=== PATIENT | female | born 1955 | race Caucasian/White ===

== ENCOUNTER 2023-01-13 10:29 | Observation (INO) | payer MEDICARE, OTHER, SELFPAY ==
[2023-01-08 08:21] VITALS: BMI 28.8
[2023-01-13] VITALS (16 sets, daily range): BP systolic 138–219; BP diastolic 28–134; PULSE 88–103; RESP 16–20; TEMP 35.6–36.9; O2SAT 91–98; BMI 28.8
[2023-01-13] MEDS: ACETAMINOPHEN 325 MG TABLET 975 MG PO (07:15)
[2023-01-13] MEDS: PREGABALIN 75 MG CAPSULE PO (07:15)
[2023-01-13] MEDS: CELECOXIB 200 MG CAPSULE PO (07:16)
[2023-01-13] MEDS: LACTATED RINGERS 1,000 ML 42 ML IV ×2 (07:16→08:51)
[2023-01-13] MEDS: VANCOMYCIN 1,000 MG/200 ML PIGGYBACK 200 MG IV (07:16)
[2023-01-13] MEDS: ALBUTEROL/IPRATROPIUM 3 ML AMPUL INH (07:45)
--- NOTE | 2023-01-13 07:48 | P.OP_ITS ---
Operative Date/Time/Diagnoses Date of procedure: 01/13/23 Time of procedure: 08:00 Pre-op diagnosis: Right knee OA Post-op diagnosis: same Procedure & Clinicians Procedure: Right total knee arthroplasty Same procedure as scheduled: Yes Indications: The patient has had progressively worsening right knee pain with radiographic changes consistent with arthritis. Non-operative management has failed and the patient has requested total knee replacement. The risks, benefits and alternatives to surgery were discussed with the patient prior to proceeding. Risks discussed included, but were not limited to, failure to relieve pain, stiffness, infection, nerve damage, deep venous thrombosis, pulmonary embolism, stroke, coma, heart attack, permanent paralysis and , as well as the potential need for eventual revision of the prosthetic. Surgeon: Becki Garcia Land Examiner: Mitch Timmons Anesthesia Type: Spinal and Sedation Operative Notes Findings: Severe right knee lateral compartment arthritis, adequate stability, good tracking of the patella Closure Type: primary Specimen(s): none sent Prosthetic devices, grafts, tissues, transplants, or devices: [employer] BCS 2 a size 5 femur, size 4 tibia, +10 poly, 35 x 7- 1/2 mm patella Estimated Blood Loss (mL): 250 Blood products transfused: none Tourniquet time (min): 70 Procedure in detail: The patient was seen in the pre-operative area, where the patient identified the right knee as the operative site and this was marked with my initials. The patient received pre-operative antibiotics, and was taken to the operating room and placed on the operative table in the supine position. After satisfactory anesthesia, a house furnishings supervisor out was performed. The right leg was encircled with a tourniquet about the proximal thigh, and the leg was prepared from the toes to the tourniquet with ChloroPrep in the usual fashion and draped through sterile drapes. The leg was elevated and exsanguinated with Eschmark bandage and the tourniquet inflated to [250] mmHg pressure. A PA was used throughout the procedure was essential for retraction intraoperative positioning in order to allow safe implantation of the components. The knee was approached through an approximately 18 cm incision centered over the patella and carried into the knee through a medial parapatellar arthrotomy. A portion of the medial and lateral meniscus was resected. Soft tissue was carefully mobilized around the patella the patella was measured with a caliper. Bone was resected from the patella and the patellar height was reconstituted with up an appropriate sized patellar component. A cover was then placed on the patella. A small amount of additional medial and lateral meniscus was resected. The distal femur was cut at 5?. A [+2] cut was used. It looked like an appropriate distal femoral cut and the cut was made without difficulty. An extramedullary guide was used for the tibial cut. 10 mm was resected off the least affected side.The tibia was prepared. The rotation was assessed. The patient was placed in extension residual medial and lateral meniscus as well as any residual bone was carefully resected. [No] additional tibia was resected. Hemostasis was achieved especially posteriorly. Additional local was injected into the posterior capsule. The extension gap was assessed and additional releases for gap balancing were performed as necessary. It was checked with the gap ballet company artistic director. The femoral component was trial was placed and the notch was finished. The rotation was assessed and the appropriate size femoral guide was placed on the distal femur and finishing cuts were made. There was no significant evidence of notching. The anterior, posterior and chamfer cuts were then made. The posterior osteophytes and soft tissues were then removed. The posterior capsule was injected with part of a mixture of 60 ml 0.25% Marcaine mixed with 20 ml Exparel for post operative pain control. The remainder of this mixture was injected into the capsule and subcutaneous tissues during cement curing. The tibial and femoral components were then placed and the knee placed through a range of motion. Range of motion was [0-130], with good stability throughout the range. The trials were then removed, and the tibia was finished. The bone was prepared with pulsatile lavage, and dried with a sponge. Cement was applied and the final prosthetics placed. Excess cement was removed during and after cement curing. A brief Betadine soak was performed. After confirming there was no extruded cement posteriorly, the final tibial insert was placed. The knee was copiously irrigated and the tourniquet deflated. Hemostasis was obtained with the Bovie cautery. A drain was placed and brought out superolaterally. The capsule was closed with interrupted nonabsorbable suture. The subcutaneous layer was closed with barbed sutures, and the skin with a running 3-0 V-Lock suture and Surgical glue. An Aquacel Ag dressing was applied and the patient was taken to recovery having tolerated the procedure well. Complications: none Post-operative Condition: stable Disposition: Acute Care Plan for aftercare: The patient will be maintained on a standard total knee replacement protocol with weight bearing as tolerated. The patient will receive aspirin and sequential compression devices for DVT prophylaxis. The patient will be admitted to the hospital as she has multiple medical problems including some component of cuff chronic pain problems, neuropathy, restless legs and difficulty mobilizing. She had fairly recent spine surgery. Discharged home when safe for the home environment.
--- NOTE | 2023-01-13 07:48 | PM.PREOP ---
Pre-operative Note Interval Note History & Physical reviewed/Exam performed by Physician: Yes Changes to H&P: No
[2023-01-13] MEDS: CEFAZOLIN 2 GM/100 ML PREMIX 100 ML IV ×2 (08:29→16:29)
--- NOTE | 2023-01-13 08:35 | SUR.OPER ---
Supine on padded OR bed. Pillow under head, arms secured on padded armboards <90 degree abduction. Safety belt across torso. Non-operative leg secured with tape over blanket over lower leg. Operative leg secured in DeMayo positioner. Foam padded brace at thigh of operative leg.
[2023-01-13] MEDS: BUPIVACAINE LIPOSOME 266 MG/20 ML VIAL INJ (08:41)
[2023-01-13] MEDS: BUPIVACAINE 0.5% W/ EPI (PF) 30 ML VIAL INJ (08:45)
--- NOTE | 2023-01-13 11:00 | DI.RAD.S_ITS ---
PROCEDURE: XR KNEE RT 1TO2V INDICATIONS: TKA TECHNIQUE: 2 view(s) of the knee acquired. COMPARISON: None. FINDINGS: Bones: Patient is status post knee joint arthroplasty. Hardware components are in expected positions. Visualized bony structures are intact. Soft tissues: Overlying postoperative changes are noted. Lobulated, corticated dystrophic calcification projects dorsal to the tibial fibular articulation, incidental. IMPRESSION: Expected appearance post right knee arthroplasty. Dictated by: Elsa Lomeli M.D. on 01/13/2023 at 9:43 Approved by: Elsa Lomeli M.D. on 01/13/2023 at 9:43
[2023-01-13] MEDS: HYDROMORPHONE 2 MG TABLET PO ×3 (12:34→20:17)
[2023-01-13] MEDS: LACTATED RINGERS 1,000 ML 100 ML IV ×2 (12:36→22:26)
[2023-01-13] MEDS: HYDROCODONE/ACET 10/325 TABLET 1 TAB PO ×3 (13:03→23:10)
[2023-01-13] MEDS: HYDROMORPHONE 4 MG TABLET PO ×2 (13:04→16:26)
[2023-01-13] MEDS: ONDANSETRON 4 MG/2 ML INJ IV (13:35)
--- NOTE | 2023-01-13 13:42 | CM.DANOTE ---
Addendum entered by GIOVANNI Powell 01/13/23 14:47: ADD: SW met bedside with pt while Ortho Dr. Garcia checked on pt's progress with her knee and SW explained pt currently Outpt with a Bed status and MIGHT switch to OBS pending Medicare criteria tomorrow but currently pt does not qualify for Medicare coverage at SNF. Pt confirms she lives in an apt/condo that [facility] that does have 16 steps to enter but they are wide/large stairs that accommodate a walker and has rail. Pt lives with a roommate who is also disabled physically and therefore can assist with some chores/food/etc but not able to physically assist pt at d/c. Pt confirms she has a hx of [facility] after a hip fx a few years ago and does not feel that they provided good care and would not want to go there again. Pt also states she has used [facility] in the past and felt they were very good and would be willing to use [facility] again if she is safe for d/c to home. Pt states her knee feels so much better than her prior knee surgeries and is hopeful she can do well with PT/OT for return to home with [facility]. SW updated PT and they will try to eval her today. Plan: SW to follow closely for PT/OT eval and recommendations to confirm pt safe for home with HH as currently SNF would be private pay. SW made initial referral to [facility] to review. Will need F2F and orders if pt safe for home. GIOVANNI Powell Original Note: Patient is a 67 yo female who was admitted on 01/13/23 for RTKA. Pt has MCR and PRE DIM for insurance and her PCP is Emil Wolfe. EMR was reviewed. Per Ortho , pt tolerated procedure well but has many stairs to enter her apt and requesting SNF at d/c. Per UR RN, pt currently SDC status and might change to OBS status tomorrow but not likely to meet criteria for Inpt Status and therefore a barrier to SNF placement. SW attempted to meet bedside with pt but on the BSC attempting to have a bowel movement and per RN pt has not been very ambulatory for about 6 months. PT/OT ordered and pending and SW confirmed they have not yet worked with pt today as she was just admitted from surg this morning. Plan: SW to follow closely for another attempt at bedside assessment to discuss SNF vs HH and barriers to SNF placement and PT/OT eval and recommendations. GIOVANNI Powell Discharge Planning/Care Management CM Discharge Assessment Start: 01/13/23 13:40 Freq: Status: Active Protocol: Document 01/13/23 13:40 BF (Rec: 01/13/23 13:42 BF [id number]) Discharge Planning Assessment Assigned Campground Attendant GIOVANNI Barajas Advance Directives? No Advance Directives on File No History Provided By Patient,Medical Record Has Patient been admitted in last 30 No days? Prior Living Arrangements House Household Members friend(s),other Type of transporation used prior to Relies on Others admit Independent with ADL's Yes Is patient alert and oriented? Yes Caregiver for Another No Community Services used prior to Physical Therapy admission: Barriers to Discharge Yes Comment SDC, might change to OBS and pt wants SNF Discharge Plan Home with Home Health Additional Comment Pending PT/OT eval and recommendations HH vs SNF Whiteboard Updated in Patient Room with Yes name and ext. # of Campground Attendant Review Status In Process Please Provide Date Initial DC 01/13/23 Assessment Was Performed Next Review Type Continued Stay Review Pre-Anesthesia Assessment Start: 01/08/23 08:21 Freq: Status: Active Protocol: Document 01/08/23 08:21 CAB (Rec: 01/08/23 09:42 CAB [id number]) Pre-Anesthesia Assessment Preferred Name Tanvi Patient Information Reviewed Via Phone Assessment Assessment Completed With Patient Diagnostic Results BMP/CMP,CBC,EKG,Urinalysis Comment Outside labs/EKG scanned Primary Care Provider Emil Wolfe Seen Specialist in Last 12 Months Yes Specialist Seen Orthopedist Primary Language Khmer Broke Beater Machine Operator Required No Height 173.99 cm Weight 87.09 kg Body Mass Index (BMI) 28.8 Hearing Ability Normal Visual Impairment Blind Visual Assist None Dentition Type Teeth, Natural Present,Teeth, Missing Barriers to Learning None Comment Right eye blindness. Pt denies any difficulties Hx Anesthesia Reactions Yes: I was awake during my nose surgery, I could hear them talking Hx Family Anesthesia Reaction No Hx Malignant Hyperthermia No Hx Blood Transfusions No Anesthesia Review Requested No Superintendent Quarry Yes: No available help, wants to go to [facility] alcohol intake current alcohol intake frequency 3 or more drinks per day Smoking Status Former smoker Tobacco type cigarettes how long ago did patient quit smoking Quit 2022 Substance Use Type marijuana Comment Advised not to smoke marijuana 24 hours prior Pain Present Pain Reported Musculoskeletal Symptoms Joint Pain History of Falling (Recent or History of No ) Patient is completely paralyzed or No completely immobile Mental Status Oriented to own ability Is patient on oxygen? No Does patient have TELLEZ/SOB No Hx Sleep Apnea No Currently Taking a Beta Gely No Can You Climb a Flight of Stairs Without Yes SOB Hx Chest Pain No Hx SOB No Hx Syncope or Dizziness No Anti-Coagulant Therapy No Has a Bee Farmer No Cardiac Testing No Hx Pacemaker/ICD No Pacemaker Rep Required? No Cardiac Clearance Received Not Applicable Diet Type At Home Regular Dysphagia No Gastrointestinal Symptoms None Bladder Pattern Frequency,Urgency Urinary Catheter Present No Hx Urinary Self Catheterization No Diabetes No HgbA1C 5.3 Date 07/23/22 Patient No Lactating No Presence of External or Internal Medical Yes: Right hip/ankle Devices Have you had any close contact with No someone diagnosed with COVID-19? Received a COVID vaccine? Yes Received all doses? No Marital Status / Lives With other Current Living Arrangements House Comment Lives in a large home with [employer] renters Number of Floors (Floors) Two Floors Support System None Does the Patient Have Assistance After No Surgery Comment Pt not advised length of stay per surgeon, wants to go to [facility] Feels Safe in Current Environment Yes Been Physically Hurt or Threatened By a No Person in Current Environment Do you have thoughts of harming yourself None or others? Are you currently considering suicide? No Do you have a plan to hurt yourself or No Plan others? Do You Have Any Spiritual Beliefs That No May Affect Your HC Choices? Do You Have Any Cultural Practices That No May Affect Your HC Choices? Comment [place]eterian Who Can We Speak to About Patient's Care Family, friends Identifying Code for Release of Patient Declines to issue Information Health Care Proxy/Next of Kin Maggie (sister) Health Care Proxy Emergency Contact Name Maggie (sister) Emergency Contact Advance Directives? No Power of Bulb Weeder No PAC Instructions Do not shave/clip surgical site,Durable medical equipment ,Medications to take/avoid, Nasal antibiotic,No ETOH/ petroleum product on skin DOS, NPO,Pre-surgical wash,Sensory aids,Sturdy shoes/comfortable clothes,Do not bring valuables and remove jewelry
[2023-01-13] MEDS: IBUPROFEN 400 MG TABLET PO ×3 (14:43→23:10)
[2023-01-13] MEDS: LORazepam 1 MG TABLET PO ×3 (14:45→21:54)
[2023-01-13] MEDS: GABAPENTIN 300 MG CAPSULE PO ×2 (14:48→20:15)
--- NOTE | 2023-01-13 16:08 | OT.IPNOTE ---
Pt not wanting to do OT eval at this time and PT in the room getting her prior level of care. To see pt tomorrow for OT eval.
--- NOTE | 2023-01-13 16:32 | PT-IP ANOTE ---
PT eval received and EMR reviewed. Checked on pt and pt c/o increase back and RLE pain 04/14. pt agreed to provide PLOF and home set up info. will f/u.
[2023-01-13] MEDS: DOCUSATE 100 MG CAPSULE 200 MG PO ×3 (17:20→23:10)
[2023-01-13] MEDS: DULOXETINE 30 MG CAPSULE 60 MG PO (20:14)
[2023-01-13] MEDS: ROPINIROLE 1 MG TABLET PO (20:15)
[2023-01-13] MEDS: DOCUSATE 100 MG CAPSULE PO (20:15)
[2023-01-13] MEDS: GABAPENTIN 100 MG CAPSULE PO (20:15)
[2023-01-13] MEDS: QUETIAPINE 25 MG TABLET PO (20:15)
[2023-01-13] MEDS: TRAZODONE 50 MG TABLET 100 MG PO (20:15)
[2023-01-13] MEDS: ASPIRIN EC 81 MG TABLET PO (20:15)
[2023-01-13] MEDS: CYCLOBENZAPRINE 10 MG TABLET PO (20:15)
--- NOTE | 2023-01-13 20:52 | PC.NURSE ---
Post-op/Pain: Pt reports high pain level ever since she came from PACU. Md was called x3 and even came in once to speak with her. MD did add increased oral dlauidid, ativan and then later alcohol protocal. CIWA has been 2-6-9. Pt does have some tachy, heart rate as high as 120's when up and moving. Pt rt foot is also dusky, cooler than lt foot, sl decreased cap refill. But does have a strong pulse and she is able to get up and move on it without problems. Foot look less purplish now than at the end of a shift.
--- NOTE | 2023-01-13 23:31 | PC.NURSE ---
Patient is alert and oriented. Behavior at start of shift: crying, screaming, demanding pain meds. Currently is calm and expressing apology for earlier rudeness. Still having pain at severity of 8-10 but is able to take phone calls and is speaking in calm, measured voice. Breath sounds CTA with RA sat of 95%. HRR but tachy at 100 bpm and BP elevated at 167/94 likely related to pain. Denies nausea. BT present and abdomen is soft. Currently has external catheter is place as not wanting to get up to BSC related to pain therefore gait not assessed. CMS is intact bilaterally and right foot is more reddened than purple as previous RN reported. Dressing to right knee covered with mike wrap is CDI. Wearing SCD only on left leg per her request. Anxiety has abated and denied feeling of anxiousness at time of assessment and CIWA score was 1; did have Ativan for anxiety at 2154 for general complaint of anxiety. Seizure pads in place at shift change. Fall risk assessment is high and bed alarm is activated.
[2023-01-14] MEDS: HYDROMORPHONE 4 MG TABLET PO ×2 (00:12→11:54)
[2023-01-14] MEDS: CEFAZOLIN 2 GM/100 ML PREMIX 100 ML IV (00:13)
[2023-01-14] MEDS: HYDROCODONE/ACET 10/325 TABLET 1 TAB PO ×8 (02:26→23:02)
[2023-01-14] MEDS: IBUPROFEN 400 MG TABLET PO ×6 (02:26→23:01)
[2023-01-14] MEDS: DOCUSATE 100 MG CAPSULE 200 MG PO ×8 (02:27→23:03)
[2023-01-14 03:10] VITALS: BP 158/92; PULSE 101; RESP 20; TEMP 36.6; O2SAT 94
[2023-01-14 05:28] LABS: Hematocrit 37.3 % (36-46); Hemoglobin 12.9 g/dL (12.0-16.0)
[2023-01-14 07:00] VITALS: BP 161/95; PULSE 91; RESP 18; TEMP 35.9; O2SAT 93
--- NOTE | 2023-01-14 07:04 | P.PN_ITS ---
Subjective Subjective Date Patient Seen: 01/14/23 Time Patient Seen: 07:04 Interval history: Pt lying comfortably in bed, c/o hunger. Voiding without difficulty, no N/V. Has not been OOB yet. In review of CM notes, it appears that they have spoken w/ pt and hope is to go home w/ HH if needed. Pt has not worked w/ PT yet - she has 16 steps to get into her home. She was recently given dilaudid and fell asleep during our conversation. Pts RN is concerned that glucose checks were ordered despite the fact that this pt has no h/o DM - will cancel. Exam Vital Signs (past 8 hours): - 01/13/23 23:28 01/13/23 23:40 01/14/23 03:10 Temperature 97.3 F L 97.8 F Pulse Rate 97 H 101 H Respiratory Rate 20 20 Blood Pressure 175/87 H 158/92 H Pulse Oximetry 95 94 Oxygen Delivery Method Room Air Oxygen Flow Rate 0 0 Oxygen Delivery Method Room Air Oxygen Flow Rate 0 Narrative Exam Narrative: 5/5 strength in hip flexors, quadriceps, hamstrings, DF, PF, EHL on right. S ensation to light touch intact throughout RLE. Calf soft, compressible, nontender and without palpable cords or masses. ERIKA and Aquacel CDI. Objective Labs 01/14/23 05:05 Labs: Laboratory Results - last 24 hr 01/14/23 05:05 Hgb 12.9 Hct 37.3 PFSH Medical History (Updated 01/14/23 @ 07:09 by Autumn Rasmussen PA-C) Back fracture Bipolar disorder Blindness of right eye (~2015) Depression History of COVID-19 Hx of ectopic PTSD (post-traumatic stress disorder) RLS (restless legs syndrome) Skin cancer Spinal stenosis Surgical History (Updated 01/14/23 @ 07:09 by Autumn Rasmussen PA-C) History of ankle surgery History of back surgery History of ear surgery History of hip surgery (~2019) History of nasal surgery Hx of eye surgery (~2015) Hx of hand surgery Hx of tubal ligation Social History household members: other Smoking Status: Former smoker alcohol intake: current Assessment & Plan Post-op Assessment and plan (1) Total knee replacement status: Assessment and Plan narrative: PT. Disposition dependent upon progress w/ PT. ASA BID and SCDs for VTE prophylaxis. (2) Opioid dependence: Assessment and Plan narrative: Pt takes hydrocodone 10/325, 8 tabs per day at baseline. Acute post-op pain is currently covered w/ oral hydromorphone. In order to safely optimize pts post- op pain control, she will need to be observed throughout today to ensure she is medically stable and safe with additional narcotics. Hopeful discharge tomorrow if she is able to progress adequately w/ PT and pain is well-controlled. Postoperative Procedures: Procedures Operation Date: 01/13/23 07:45 Actual Procedure Side Surgeon p Total Knee Arthroplasty Right Becki Garcia MD Postoperative day: 1
[2023-01-14] MEDS: DULOXETINE 30 MG CAPSULE 60 MG PO ×2 (08:47→20:14)
[2023-01-14] MEDS: DOCUSATE 100 MG CAPSULE PO (08:47)
[2023-01-14] MEDS: FOLIC ACID 1 MG TABLET PO (08:48)
[2023-01-14] MEDS: ASPIRIN EC 81 MG TABLET PO ×2 (08:48→20:14)
[2023-01-14] MEDS: MULTIVITAMIN 1 TABLET 1 TAB PO (08:48)
[2023-01-14] MEDS: THIAMINE 100 MG TABLET PO (08:48)
[2023-01-14] MEDS: GABAPENTIN 300 MG CAPSULE PO ×3 (08:49→20:14)
[2023-01-14] MEDS: DIVALPROEX ER 250 MG TAB 1000 MG PO (08:49)
--- NOTE | 2023-01-14 09:42 | PT.IIE ---
Current Diagnoses Opioid dependence, uncomplicated (01/13/23) Unilateral primary osteoarthritis, right knee (01/13/23) Presence of unspecified artificial knee joint (01/13/23) Surgery Performed Operation Date: 01/13/23 07:45 Actual Procedures p Total Knee Arthroplasty(Right) - Becki Garcia MD Surgical History (Last Updated 01/08/23 @ 09:26 by Vidhya Hogan RN) History of ankle surgery History of back surgery History of ear surgery History of hip surgery (~2019) History of nasal surgery Hx of eye surgery (~2015) Hx of hand surgery Hx of tubal ligation Medical History (Last Updated 01/08/23 @ 09:30 by Vidhya Hogan RN) Back fracture Bipolar disorder Blindness of right eye (~2015) Depression History of COVID-19 Hx of ectopic PTSD (post-traumatic stress disorder) RLS (restless legs syndrome) Skin cancer Spinal stenosis Physical Therapy Inpatient Evaluation/Re-Eval M1 PT/OT-IP Prior Functional Status Start: 01/13/23 16:28 Freq: NEEDED Status: Active Protocol: Document 01/14/23 09:29 ES (Rec: 01/14/23 09:42 ES [id number]) Medical Review Prior Functional Status Medical History Reviewed Yes Communication able to make needs known Mobility and Gait pt stated that she is modified independent with all mobilities; uses a manual w/c for mobility most of the time for ~ 5-6 years due to h/o back surgery and unable to tolerate standing for long periods of time. pt stated that she is able to ambulate for ~ 100 ft without AD indoors but uses her w/c or 4WW for outdoor mobility. Social History Household Members other Living Arrangements House Number of Floors (Floors) Two Floors Number of Stairs To Enter/Railing? pt stays on the lower level with 16 steps R rail to descend to her level Home Environment Standard Height Toilet,Walk in Shower Home Equipment Four Wheel Walker,Manual Wheelchair,Bedside Commode, Shower Seat with Backrest,Hand Held Shower,Grab Bars Near Toilet,Grab Bars In Shower Additional Social History Comment pt lives a roommate who will not be able to assist her; stated that her roommate is disabled M2 PT-IP Current Condition Start: 01/13/23 16:28 Freq: NEEDED Status: Active Protocol: Document 01/14/23 09:29 ES (Rec: 01/14/23 09:42 ES [id number]) Physical Therapy Current Condition Current Condition Evaluation Date 01/14/23 Treatment Diagnosis S/p R TKA Onset Date 01/13/23 M3 PT-IP Subjective Start: 01/13/23 16:28 Freq: NEEDED Status: Active Protocol: Document 01/14/23 09:29 ES (Rec: 01/14/23 09:42 ES [id number]) Subjective Physical Therapy Visit Type Type Initial Evaluation Visit Start Time 09:03 Visit Stop Time 09:26 Total Visit Minutes 23 Physical Therapy Visit Comments Patient Comments Patient up to BSC with nursing when PT entered room. Patient agreeable to work with PT. M4 PT-IP Mobility and Gait Start: 01/13/23 16:28 Freq: NEEDED Status: Active Protocol: Document 01/14/23 09:29 ES (Rec: 01/14/23 09:42 ES [id number]) PT-Bed Mobility Assessment Rolling Type of Rolling Roll to Right,Roll to Left Level of Assist Independent Sit to Supine Sit to Supine Standby Assistance Scooting Scooting Up and Down in Bed Independent PT-Transfer Assessment Sit to and From Stand Sit to and from Stand Contact Guard Assistance,Use of Upper Extremities Equipment Transfer Assistive Device Gait Belt,Front Wheeled Walker Transfers Transfer Destination Chair,Bedside Commode Transfer Technique Stand Step Pivot Transfer Ability Level of Assist Contact Guard Assistance,Use of Upper Extremities Comments Mobility Comments Cued patient to perform transfers with R foot forward to reduce pain, and for set-up positioning and use of hands on chair vs FWW for safety. Patient impulsive. Patient requested to end session in bed, self-positioned into L sidelying and quickly fell asleep. Gait Assessment Gait Gait Assistance Required: Contact Guard Assist Distance (Feet) 12 Assistive Devices Assistive Device Gait Belt,Front Wheeled Walker Gait Deviations General Gait Pattern Antalgic,Flexed Trunk,Step-to Gait Factors Limiting Gait Function Factors Limiting Gait Function Decreased Strength,Pain Comments Gait Comments Ambulated in room with emerging step-through gait, decreased stance time on R, flexed knee during stance on R . FWW adjusted lower to improve ability to WB on UE's. Educated patient on WBAT precautions. Ambulated with slow gait speed. PT-Balance Assessment Sitting Balance and Reactions Static Sitting Balance Ability Good Dynamic Sitting Balance Ability Good Standing Balance and Reactions Static Standing Balance Ability Good Dynamic Standing Balance Ability Fair Device Used FWW M5 PT-IP Objective Assessments Start: 01/13/23 16:28 Freq: NEEDED Status: Active Protocol: Document 01/14/23 09:29 ES (Rec: 01/14/23 09:42 ES [id number]) Orientation Orientation/Cognition Level of Alertness Lethargic Safety Awareness Decreased Safety Awareness Comments Drowsy, impulsive. Bed alarm activated at end of session. Gross Range of Motion Upper Extremity ROM Assessment Within Functional Limits Lower Extremity ROM Assessment Right Impaired Impairments Lacking ~10-15 degrees R knee extension. Strength Upper Extremity Strength Assessment Within Functional Limits Lower Extremity Strength Assessment Right Impaired Hip 4/5 Knee 3-/5 Ankle 4/5 M6 PT-IP Treatment Start: 01/13/23 16:28 Freq: NEEDED Status: Active Protocol: Document 01/14/23 09:29 ES (Rec: 01/14/23 09:42 ES [id number]) Physical Therapy Treatment Exercises Exercises Ankle Pumps,Quad Sets,Heel Slides Knee ROM Measurement ~10-95 degrees Education Education Provided Precautions,Weight Bearing Status,Post-Op Packet,Safety M7 PT-IP Assessment and Plan Start: 01/13/23 16:28 Freq: NEEDED Status: Active Protocol: Document 01/14/23 09:29 ES (Rec: 01/14/23 09:42 ES [id number]) PT Summary Assessment and Plan Potential Rehabilitation Potential Good Status of Condition at Evaluation Evolving Summary Impairments Pain,ROM,Strength,Balance, Cognition,Transfers,Gait Assessment Summary Patient is a 67 year old female POD 1 s/p R TKA. She demonstrates decreased R knee extension and was educated to not place pillow under knee while resting. Patient is impulsive and demonstrated decreased safety awareness, but was also drowsy throughout session. She was able to tolerate short distance ambulation with FWW and initiation of TKE ex's with fair quad activation and good knee flexion ROM. She will benefit from further skilled PT to increase safety and independence with mobility and for further education in post -op instructions and HEP. Goals Bed Mobility Goal Independent Transfer Goal Independent,Front Wheeled Walker Gait Goal Independent,Front Wheel Walker Gait Distance 100 ft Other Goals Patient will be able to ascend /descend 16 stairs with single rail and LRAD. Patient will be modified indep with mobility using LRAD (4WW vs FWW). Patient will be indep with TKA HEP. Days to Meet Goals 3 Frequency of Treatment Frequency Of Treatment Twice a Day Treatment Plan Physical Therapy Treatment Plan Bed Mobility Training,Transfer Training,Gait Training, Therapeutic Exercise,Post Op Education,Discharge Planning, Hot or Cold Pack Precautions Other Precautions Fall risk, impulsive Weight Bearing Status Weight Bearing Status Weight Bear as Tolerated Recommendations To Nursing Amount of Assist Needed 1 Person Assist Discharge Recommendations PT Discharge Recommendations Home vs SNF Other Discharge Recommendations TBD Transportation Needs at Discharge Private Vehicle
[2023-01-14 11:00] VITALS: BP 173/76; PULSE 95; RESP 17; TEMP 36.4; O2SAT 93
--- NOTE | 2023-01-14 11:53 | OT.IP.EVAL ---
Current Diagnoses Opioid dependence, uncomplicated (01/13/23) Unilateral primary osteoarthritis, right knee (01/13/23) Presence of unspecified artificial knee joint (01/13/23) Surgery Performed Operation Date: 01/13/23 07:45 Actual Procedures p Total Knee Arthroplasty(Right) - Becki Garcia MD Past Medical History (Last Updated 01/08/23 @ 09:30 by Vidhya Hogan, RN) Back fracture Bipolar disorder Blindness of right eye (~2015) Depression History of COVID-19 Hx of ectopic PTSD (post-traumatic stress disorder) RLS (restless legs syndrome) Skin cancer Spinal stenosis Surgical History (Last Updated 01/08/23 @ 09:26 by Vidhya Hogan RN) History of ankle surgery History of back surgery History of ear surgery History of hip surgery (~2019) History of nasal surgery Hx of eye surgery (~2015) Hx of hand surgery Hx of tubal ligation Occupational Therapy Inpatient Evaluation/Re-Eval M1 PT/OT-IP Prior Functional Status Start: 01/14/23 12:06 Freq: NEEDED Status: Active Protocol: Document 01/14/23 11:30 [facility] (Rec: 01/14/23 12:19 [facility] [id number]) Medical Review Prior Functional Status Medical History Reviewed Yes Communication able to make needs known Mobility and Gait pt stated that she is modified independent with all mobilities; uses a manual w/c for mobility most of the time for ~ 5-6 years due to h/o back surgery and unable to tolerate standing for long periods of time. Pt states uses her wc/4ww in the house and SPC out in the community. Activities of Daily Living and IADL's Pt sits on her wc/4ww for her IADl needs. Social History Household Members other Living Arrangements House Number of Floors (Floors) Two Floors Number of Stairs To Enter/Railing? pt stays on the lower level with 16 steps R rail to descend to her level Home Environment Standard Height Toilet,Walk in Shower Home Equipment Four Wheel Walker,Manual Wheelchair,Bedside Commode, Shower Seat with Backrest,Hand Held Shower,Grab Bars Near Toilet,Grab Bars In Shower Additional Social History Comment pt lives a roommate who will not be able to assist her; stated that her roommate is disabled M2 OT-IP Current Condition Start: 01/14/23 12:06 Freq: Status: Active Protocol: Document 01/14/23 11:30 [facility] (Rec: 01/14/23 12:19 [facility] [id number]) Occupational Therapy Current Condition Current Condition Evaluation Date 01/14/23 Treatment Diagnosis S/p R TKA Diagnosis Onset Date 01/13/23 M3 OT- IP Subjective and Pain Start: 01/14/23 12:06 Freq: Status: Active Protocol: Document 01/14/23 11:30 [facility] (Rec: 01/14/23 12:19 [facility] [id number]) OT- Subjective Occupational Therapy Visit Type Type Initial Evaluation Visit Start Time 11:30 Visit Stop Time 11:53 Total Visit Minutes 23 Occupational Therapy Visit Comments Patient Comments Pt agreed to get up to brush her teeth. Patient/Caregiver Goals To go home. OT Pain Assessment Pain When Pain Assessed During Mobility Pain Present Pain Present Pain Reported Location right knee Intensity 9 Scale Used Numeric (0 - 10) M4 OT- IP ADL's Start: 01/14/23 12:06 Freq: Status: Active Protocol: Document 01/14/23 11:30 [facility] (Rec: 01/14/23 12:19 [facility] [id number]) OT PUC-[id number]-Trcppmt General Evaluation Self-Feeding Ability Independent OT ADL-Grooming General Evaluation Grooming Ability Independent Areas Needing Assistance Retrieving/Set-up of Grooming Items OT ADL-Oral Care General Eval Oral Care Ability Independent Areas of Assistance Retrieving/Set-Up of Items OT ADL-Dressing General Eval Lower Body Dressing Ability Standby Assistance Comments OT Dressing Comments Pt able to comfortably bend over to aneesh/doff her socks at this time. OT ADL-Toileting Comments OT Toileting Comments NOt performed. OT ADL-Bathing Comments OT Bathing Comments Pt will benefit from a bath aid to assist to help get into and out of her shower and for assist if needed. Pt's roommate is disabled and not able to assist. M5 OT- IP IADL's Start: 01/14/23 12:06 Freq: Status: Active Protocol: Document 01/14/23 11:30 [facility] (Rec: 01/14/23 12:19 [facility] [id number]) OT-Instrumental Activities of Daily Living Deficits IADL Deficits Identified Deficits M6 OT- IP Functional Cognition Start: 01/14/23 12:06 Freq: Status: Active Protocol: Document 01/14/23 11:30 [facility] (Rec: 01/14/23 12:19 [facility] [id number]) Cognitive Factors Limiting Selfcare Function Cognitive Ability Level of Alertness Alert Patient Orientation Name,Place,Situation Attention Span Ability Capable of Focused Attention, Capable of Sustained Attention Cognitive Comments Cognitive Assessment Comments Pt giving OT different information from PT yesterday regarding equipment use at home. OT- Vision and Hearing OT- Hearing Assessment OT- Hearing Assessment WFL OT- Vision Assessment Vision Assessment Comments Pt is legally blind in her right eye. M7 OT- IP Mobility and Balance Start: 01/14/23 12:06 Freq: Status: Active Protocol: Document 01/14/23 11:30 [facility] (Rec: 01/14/23 12:19 [facility] [id number]) OT- Bed Mobility Assessment Sit to Supine Sit to Supine Assist Standby Assistance OT-Transfer Assessment Sit to and From Stand Sit to and from Stand Standby Assistance Transfers Transfer Ability Standby Assistance,Contact Guard Assistance Technique Transfer Destination Bed,Chair Devices Transfer Assistive Devices Gait Belt,Front Wheeled Walker Comments Mobility Comments SBA to stand and walk to the sink with FWW for grooming/ oral care needs. Pt wanting to get back to bed due to increased pain and slight buckling of LLE but no loss of balance. OT- Balance Assessment Sitting Balance and Reactions Static Sitting Balance Ability Normal Dynamic Sitting Balance Ability Good Standing Balance and Reactions Static Standing Balance Ability Good Dynamic Standing Balance Ability Fair M8 OT- IP Objective Assessments Start: 01/14/23 12:06 Freq: Status: Active Protocol: Document 01/14/23 11:30 [facility] (Rec: 01/14/23 12:19 [facility] [id number]) OT Strength Upper Extremity Strength Assessment Within Functional Limits M9 OT- IP Assessment and Plan Start: 01/14/23 12:06 Freq: Status: Active Protocol: Document 01/14/23 11:30 [facility] (Rec: 01/14/23 12:19 [facility] [id number]) OT Summary Assessment and Plan Potential Rehabilitation Potential Good Analytic Complexity at Evaluation Low Summary OT Impairments Pain,Functional Mobility, Dressing,Toileting,Bathing, Toilet Transfers,Shower Transfers,Activity Tolerance Progress Towards Goals Progressing Toward Goals Assessment Summary Pt low complexity and main barrier are pain, steps, and decreased activity tolerance. Pt looking to go home when medically stable. Pt will benefit from home health and bath aid as well. Goals Dressing Goal Independent Toileting Goal Independent Bathing Goal Standby Assistance Toilet Transfer Goal Independent Shower Transfer Goal Standby Assistance Days to Meet Goals 5 Frequency of Treatment Frequency Of Treatment Once a Day Treatment Plan OT Treatment Plan ADL Training,Functional Mobility,Patient/Family Education,Discharge Planning Other Treatment Recommendations and Next shower Treatment Focus Discharge Recommendations OT Discharge Recommendations Home with Assistance,Home Health Transportation Needs at Discharge Private Vehicle
--- NOTE | 2023-01-14 12:28 | CM.DPC ---
Addendum entered by GIOVANNI Powell 01/14/23 13:59: ADD: SW met bedside with pt and she tolerated her general diet today and pain seems to be currently managed and she is aware that [employer] will be working with her again soon towards a plan of home at discharge. SW updated pt on the [facility] referral and still no SNF coverage available under Medicare as she is OBS status and no medical criteria to meet Inpt Status. Pt acknowledges understanding and appreciative of the [facility] referral. BF Original Note: DCP Cont: Per Ortho PA, pt to work with PT/OT today and work on pain management medications for good coverage as she had pain issues overnight and hopeful on d/c tomorrow Thurs. Per PT/OT, pt was able to participate and ambulated quite well and feel pt will make progress for home with HH but will need to attempt stairs as pt has 16 walker depth stairs down to her apt and PT will try after pt medicated around lunch time with her next pain medication dose. SW attempted to meet with pt to discussed d/c to home likely tomorrow with HH as per UR RN pt was barely able to be changed from SDC to OBS due to pain needs but SNF still will not be covered by Medicare under OBS but pt recently medicated and sleeping soundly. F2F and HH orders completed in anticipation of home with HH when medically stable. Plan: SW to follow for PT to attempt stairs this afternoon and further discussion bedside with pt for plan of home with [facility] referral already made per pt request yesterday. GIOVANNI Powell
--- NOTE | 2023-01-14 13:50 | PT.IPTN ---
Current Diagnoses Opioid dependence, uncomplicated (01/13/23) Unilateral primary osteoarthritis, right knee (01/13/23) Presence of unspecified artificial knee joint (01/13/23) Surgery Performed Operation Date: 01/13/23 07:45 Actual Procedures p Total Knee Arthroplasty(Right) - Becki Garcia MD Physical Therapy Treatment Note M2 PT-IP Current Condition Start: 01/13/23 16:28 Freq: NEEDED Status: Active Protocol: Document 01/14/23 09:29 ES (Rec: 01/14/23 09:42 ES [id number]) Physical Therapy Current Condition Current Condition Evaluation Date 01/14/23 Treatment Diagnosis S/p R TKA Onset Date 01/13/23 M3 PT-IP Subjective Start: 01/13/23 16:28 Freq: NEEDED Status: Active Protocol: Document 01/14/23 14:36 TS (Rec: 01/14/23 15:13 TS [id number]) Subjective Physical Therapy Visit Type Type Treatment Note Visit Start Time 13:50 Visit Stop Time 14:30 Total Visit Minutes 40 Notes BP:186/104 Number of BEAD STRINGER Visits 1 Physical Therapy Visit Comments Patient Comments Pt reports needing to use toilet, agreeable to PT. Therapy Pain Assessment Pain When Pain Assessed During Mobility Pain Present Pain Present Pain Reported M4 PT-IP Mobility and Gait Start: 01/13/23 16:28 Freq: NEEDED Status: Active Protocol: Document 01/14/23 14:36 TS (Rec: 01/14/23 15:13 TS [id number]) PT-Bed Mobility Assessment Supine to Sit Supine to Sit Standby Assistance Sit to Supine Sit to Supine Standby Assistance Scooting Scooting to Edge of Bed Standby Assistance Scooting Up and Down in Bed Independent PT-Transfer Assessment Sit to and From Stand Sit to and from Stand Standby Assistance Equipment Transfer Assistive Device Gait Belt,Front Wheeled Walker Comments Mobility Comments Supine to sit HOB elevated 50D , pt assists RLE to EOB with RUE. Sit to stand with FWW SBA , pt demonstrates good posture in standing and minimal wbering on RLE. She ambulated ~10' to toilet CGA with slow step to gait, cued pt for increased wbering if tolerated . Sit to stand from toilet SBA with use of grab bars and FWW . She ambulated another 15' in room SBA, pt requested to sit EOB. Therapist discussed performing stairs in room on platform step, pt states she is not ready for that and that she just started walking, pt became increasingly emotional and returned to bed. Therapist attempted to have friend who would help her with stairs at home come in for caregiver training tomorrow morning but she will not be able to attend . Pt was left in bed with call light nearby, tray table in place, nursing notified. Gait Assessment Gait Gait Assistance Required: Standby Assistance,Contact Guard Assist Distance (Feet) 25 Assistive Devices Assistive Device Gait Belt,Front Wheeled Walker Gait Deviations General Gait Pattern Antalgic,Flexed Trunk,Step-to Gait Factors Limiting Gait Function Factors Limiting Gait Function Decreased Activity Tolerance, Decreased Strength,Pain,Poor Balance,Poor Safety Awareness Comments Gait Comments Pt ambulated in room ~25' initially CGA progressed to SBA. Pt became fatigued after ~20' and requested to sit EOB. She has decreased time on RLE with minimal wbering, she increased wbering when provided cues. PT-Balance Assessment Sitting Balance and Reactions Static Sitting Balance Ability Normal Dynamic Sitting Balance Ability Good Standing Balance and Reactions Static Standing Balance Ability Good Dynamic Standing Balance Ability Fair Device Used FWW M5 PT-IP Objective Assessments Start: 01/13/23 16:28 Freq: NEEDED Status: Active Protocol: Document 01/14/23 09:29 ES (Rec: 01/14/23 09:42 ES [id number]) Orientation Orientation/Cognition Level of Alertness Lethargic Safety Awareness Decreased Safety Awareness Comments Drowsy, impulsive. Bed alarm activated at end of session. Gross Range of Motion Upper Extremity ROM Assessment Within Functional Limits Lower Extremity ROM Assessment Right Impaired Impairments Lacking ~10-15 degrees R knee extension. Strength Upper Extremity Strength Assessment Within Functional Limits Lower Extremity Strength Assessment Right Impaired Hip 4/5 Knee 3-/5 Ankle 4/5 M6 PT-IP Treatment Start: 01/13/23 16:28 Freq: NEEDED Status: Active Protocol: Document 01/14/23 14:36 TS (Rec: 01/14/23 15:13 TS [id number]) Physical Therapy Treatment Education Education Provided Precautions,Weight Bearing Status,Post-Op Packet,Safety M7 PT-IP Assessment and Plan Start: 01/13/23 16:28 Freq: NEEDED Status: Active Protocol: Document 01/14/23 14:36 TS (Rec: 01/14/23 15:13 TS [id number]) PT Summary Assessment and Plan Potential Rehabilitation Potential Good Summary Impairments Pain,ROM,Strength,Balance, Cognition,Transfers,Gait Progress Towards Goals Slow Progress due to Pain,Slow Progress due to Activity Tolerance Assessment Summary Pt made some progress with her mobility but remains limited by pain and activity tolerance . She performed all bed mobility SBA/Ind with HOB elevated and RUE assisting RLE . She progressed her ambulation distance to ~25' initially CGA progressed to SBA. After ~20' pt requested to sit EOB due to increasing pain/fatigue. Therapist attempted to have pt trial steps but pt states she just started walking and would like to try it tomorrow. Pt has 16 steps going down into home. Therapist attempted to setup caregiver training for tomorrow but roommate at home who will be assisting her with stairs says she cannot make the drive. PT at this time is recommending SNF vs Home. Pt would benefit from continued skilled rehab prior to d/c home. Goals Bed Mobility Goal Independent Transfer Goal Independent,Front Wheeled Walker Gait Goal Independent,Front Wheel Walker Gait Distance 100 ft Other Goals Patient will be able to ascend /descend 16 stairs with single rail and LRAD. Patient will be modified indep with mobility using LRAD (4WW vs FWW). Patient will be indep with TKA HEP. Days to Meet Goals 3 Frequency of Treatment Frequency Of Treatment Twice a Day Treatment Plan Physical Therapy Treatment Plan Bed Mobility Training,Transfer Training,Gait Training, Therapeutic Exercise,Post Op Education,Discharge Planning, Hot or Cold Pack Other Recommendations and Next Treatment Pt has 16 steps with a rail on Focus right side. Steps are deep enough for use of FWW. Precautions Other Precautions Fall risk, impulsive Weight Bearing Status Weight Bearing Status Weight Bear as Tolerated Recommendations To Nursing Amount of Assist Needed 1 Person Assist Discharge Recommendations PT Discharge Recommendations Home vs SNF Other Discharge Recommendations TBD Transportation Needs at Discharge Private Vehicle
[2023-01-14 16:54] VITALS: BP 187/99; PULSE 89; RESP 18; TEMP 36.7; O2SAT 95
[2023-01-14] MEDS: HYDROMORPHONE 2 MG TABLET PO (18:23)
[2023-01-14 20:00] VITALS: BP 192/103; PULSE 87; RESP 18; TEMP 36.3; O2SAT 94
[2023-01-14] MEDS: TRAZODONE 50 MG TABLET 100 MG PO (20:13)
[2023-01-14] MEDS: ROPINIROLE 1 MG TABLET PO (20:14)
[2023-01-14] MEDS: QUETIAPINE 25 MG TABLET PO (20:14)
[2023-01-14] MEDS: CYCLOBENZAPRINE 10 MG TABLET PO (20:14)
[2023-01-14] MEDS: GABAPENTIN 100 MG CAPSULE PO (20:14)
[2023-01-15] VITALS: BP 156/76; PULSE 91; RESP 16; TEMP 36.4; O2SAT 93
[2023-01-15] MEDS: HYDROMORPHONE 2 MG TABLET PO ×2 (00:16→13:49)
[2023-01-15] MEDS: LORazepam 1 MG TABLET PO ×2 (00:17→13:32)
[2023-01-15 01:00] VITALS: BP 156/76; PULSE 91; RESP 16
[2023-01-15] MEDS: IBUPROFEN 400 MG TABLET PO ×3 (02:18→14:28)
[2023-01-15] MEDS: HYDROCODONE/ACET 10/325 TABLET 1 TAB PO ×5 (02:18→15:48)
[2023-01-15] MEDS: DOCUSATE 100 MG CAPSULE 200 MG PO ×5 (02:19→15:49)
[2023-01-15 04:49] VITALS: BP 117/70; PULSE 95; RESP 18; TEMP 35.7; O2SAT 93
--- NOTE | 2023-01-15 06:35 | PC.NURSE ---
2300: assumed care of patient. POD#2. a/o, voices needs. 1pa bed mobility/ADL assistance. R knee is wrapped w/ mike wrap, allen and calf are red and warm to touch. 1+ non pitting edema. encouraged to elevate above heart at HS. patient agreeable to this, and she slept well thru the NOC. + CSM. pain controlled w/ PRN dilauded x 1, norco routine, ibuprofen, and Ativan PO given x 1 for ciwa of 8 at beginning of shift. b/p 170's at begin of shift, by AM it had improved to 117. routine royer two tabs given w/ [place] to prevent constipation. 0600: CIWA-0
--- NOTE | 2023-01-15 08:03 | PM.PNPO.1 ---
Subjective Subjective Date Patient Seen: 01/15/23 Time Patient Seen: 08:03 Interval history: Pain is mild in bed more severe with activity, denies fever or chills. No nausea or vomiting. Patient has 16 steps to be able to get into her apartment. Patient has a caregiver at home however the caregiver is also limited due to physical impairments of her own. Exam Vital Signs (past 8 hours): - 01/15/23 01:00 01/15/23 04:49 Temperature 96.2 F L Pulse Rate 91 H 95 H Respiratory Rate 16 18 Blood Pressure 156/76 H 117/70 Pulse Oximetry 93 Oxygen Flow Rate 0 Oxygen Delivery Method Room Air Oxygen Flow Rate 0 Narrative Exam Narrative: 67-year-old female resting in bed in no apparent distress. Dressing is clean, dry and intact. Motor functions intact bilateral lower extremities. Sensation grossly intact to light touch bilateral lower extremities. Const General: comfortable Nutritional Appearance: well nourished Orientation: alert Resp Effort & Inspection: normal respiratory effort and able to speak in complete sentences Objective Labs 01/14/23 05:05 PFSH Medical History Back fracture Bipolar disorder Blindness of right eye (~2015) Depression History of COVID-19 Hx of ectopic PTSD (post-traumatic stress disorder) RLS (restless legs syndrome) Skin cancer Spinal stenosis Surgical History History of ankle surgery History of back surgery History of ear surgery History of hip surgery (~2019) History of nasal surgery Hx of eye surgery (~2015) Hx of hand surgery Hx of tubal ligation Social History household members: other Smoking Status: Former smoker alcohol intake: current Assessment & Plan Post-op Postoperative Procedures: Procedures Operation Date: 01/13/23 07:45 Actual Procedure Side Surgeon p Total Knee Arthroplasty Right Becki Garcia MD Postoperative day: 2 Postoperative status narrative: Progressing as expected status post right total knee arthroplasty Postoperative plan: routine post-op care Postoperative plan narrative: Multimodal pain management Mobilize with physical therapy Disposition, home today or tomorrow depending on physical therapy and safe for home environment
[2023-01-15 08:13] VITALS: BP 155/76; PULSE 85; RESP 18; TEMP 36.3; O2SAT 94
[2023-01-15] MEDS: DIVALPROEX ER 250 MG TAB 1000 MG PO (08:42)
[2023-01-15] MEDS: ASPIRIN EC 81 MG TABLET PO (08:44)
[2023-01-15] MEDS: DULOXETINE 30 MG CAPSULE 60 MG PO (08:44)
[2023-01-15] MEDS: GABAPENTIN 300 MG CAPSULE PO ×2 (08:44→14:29)
[2023-01-15] MEDS: FOLIC ACID 1 MG TABLET PO (08:44)
[2023-01-15] MEDS: THIAMINE 100 MG TABLET PO (08:44)
[2023-01-15] MEDS: MULTIVITAMIN 1 TABLET 1 TAB PO (08:44)
--- NOTE | 2023-01-15 10:15 | PT.IPTN ---
Current Diagnoses Opioid dependence, uncomplicated (01/13/23) Unilateral primary osteoarthritis, right knee (01/13/23) Presence of unspecified artificial knee joint (01/13/23) Surgery Performed Operation Date: 01/13/23 07:45 Actual Procedures p Total Knee Arthroplasty(Right) - Becki Garcia MD Physical Therapy Treatment Note M2 PT-IP Current Condition Start: 01/13/23 16:28 Freq: NEEDED Status: Active Protocol: Document 01/14/23 09:29 ES (Rec: 01/14/23 09:42 ES [id number]) Physical Therapy Current Condition Current Condition Evaluation Date 01/14/23 Treatment Diagnosis S/p R TKA Onset Date 01/13/23 M3 PT-IP Subjective Start: 01/13/23 16:28 Freq: NEEDED Status: Active Protocol: Document 01/15/23 09:57 KS (Rec: 01/15/23 11:30 KS [id number]) Subjective Physical Therapy Visit Type Type Treatment Note Visit Start Time 09:57 Visit Stop Time 10:15 Total Visit Minutes 18 Notes BP 116/96 Number of COMMUNITY ENGAGEMENT REPRESENTATIVE Visits 2 Physical Therapy Visit Comments Patient Comments Pt agreeable to working w. PT. Therapy Pain Assessment Pain When Pain Assessed At Rest Pain Present Pain Present Pain Reported Location right knee Intensity 4 Scale Used Numeric (0 - 10) Pain Management Techniques Distraction,Elevation,Re- positioning M4 PT-IP Mobility and Gait Start: 01/13/23 16:28 Freq: NEEDED Status: Active Protocol: Document 01/15/23 09:57 KS (Rec: 01/15/23 11:30 KS [id number]) PT-Bed Mobility Assessment Supine to Sit Supine to Sit Standby Assistance Sit to Supine Sit to Supine Standby Assistance Scooting Scooting to Edge of Bed Standby Assistance PT-Transfer Assessment Sit to and From Stand Sit to and from Stand Standby Assistance,1 Person Assistance,Use of Upper Extremities Equipment Transfer Assistive Device Gait Belt,Front Wheeled Walker Transfers Transfer Destination Bed Transfer Technique Stand Step Pivot Transfer Ability Level of Assist Contact Guard Assistance,1 Person Assistance,Use of Upper Extremities Comments Mobility Comments Pt in bed upon arrival, agreeable to ambulate. Reports 4/10 pain at rest. SBA for sup<>sit, scooting EOB, and sit<>stand w/ FWW. Pt required cues for RLE quad activation, able to follow. She ambulated ~6 ft before reporting that she was overwhelmingly dizzy . Instructed pt to sit back down, BP 116/96, still dizzy. Pt stood again CGA and took 3 side steps towards [facility] for repositioning CGA and cues before sitting and laying back down. Left in bed w/ alarm on and all needs in reach. RN notified. Gait Assessment Gait Gait Assistance Required: Standby Assistance,Contact Guard Assist Distance (Feet) 6 Assistive Devices Assistive Device Gait Belt,Front Wheeled Walker Gait Deviations General Gait Pattern Antalgic,Flexed Trunk,Step-to Gait Factors Limiting Gait Function Factors Limiting Gait Function Decreased Activity Tolerance, Decreased Strength,Pain,Poor Balance,Poor Safety Awareness Comments Gait Comments Only able to tolerate 6 ft ambulation w/ FWW CGA dur to dizziness. Stair Climbing Assessment Comments Stair Climbing Comments Unable to assess d/t pt reported overwhelmingly dizzy . She has 16 steps to enter home. PT-Balance Assessment Sitting Balance and Reactions Static Sitting Balance Ability Normal Dynamic Sitting Balance Ability Good Standing Balance and Reactions Static Standing Balance Ability Good Dynamic Standing Balance Ability Fair Device Used FWW M5 PT-IP Objective Assessments Start: 01/13/23 16:28 Freq: NEEDED Status: Active Protocol: Document 01/14/23 09:29 ES (Rec: 01/14/23 09:42 ES [id number]) Orientation Orientation/Cognition Level of Alertness Lethargic Safety Awareness Decreased Safety Awareness Comments Drowsy, impulsive. Bed alarm activated at end of session. Gross Range of Motion Upper Extremity ROM Assessment Within Functional Limits Lower Extremity ROM Assessment Right Impaired Impairments Lacking ~10-15 degrees R knee extension. Strength Upper Extremity Strength Assessment Within Functional Limits Lower Extremity Strength Assessment Right Impaired Hip 4/5 Knee 3-/5 Ankle 4/5 M6 PT-IP Treatment Start: 01/13/23 16:28 Freq: NEEDED Status: Active Protocol: Document 01/15/23 09:57 KS (Rec: 01/15/23 11:30 KS [id number]) Physical Therapy Treatment Education Education Provided Precautions,Weight Bearing Status,Post-Op Packet,Safety Other Treatments Other Treatment Performed Discussed caregiver training, pt reports her roommate is busy and doesnt like to wait around. M7 PT-IP Assessment and Plan Start: 01/13/23 16:28 Freq: NEEDED Status: Active Protocol: Document 01/15/23 09:57 KS (Rec: 01/15/23 11:30 KS [id number]) PT Summary Assessment and Plan Potential Rehabilitation Potential Good Summary Impairments Pain,ROM,Strength,Balance, Cognition,Transfers,Gait Progress Towards Goals Slow Progress due to Pain,Slow Progress due to Activity Tolerance Assessment Summary Pt unable to progress this AM due to dizziness. SBA for bed mobility, CGA for transfers and short distance ambulation using FWW. Pt has 16 steps to enter home and does not have caregiver available for training. Will continue to assess progress, but at this time as goal are not met pt is not yet safe to d/c home. Goals Bed Mobility Goal Independent Transfer Goal Independent,Front Wheeled Walker Gait Goal Independent,Front Wheel Walker Gait Distance 100 ft Other Goals Patient will be able to ascend /descend 16 stairs with single rail and LRAD. Patient will be modified indep with mobility using LRAD (4WW vs FWW). Patient will be indep with TKA HEP. Days to Meet Goals 3 Frequency of Treatment Frequency Of Treatment Twice a Day Treatment Plan Physical Therapy Treatment Plan Bed Mobility Training,Transfer Training,Gait Training, Therapeutic Exercise,Post Op Education,Discharge Planning, Hot or Cold Pack Other Recommendations and Next Treatment Pt has 16 steps with a rail on Focus right side. Steps are deep enough for use of FWW. Precautions Other Precautions Fall risk, impulsive Weight Bearing Status Weight Bearing Status Weight Bear as Tolerated Recommendations To Nursing Amount of Assist Needed 1 Person Assist Discharge Recommendations PT Discharge Recommendations Home vs SNF Other Discharge Recommendations TBD Transportation Needs at Discharge Private Vehicle,Wheelchair/ Cabulance
--- NOTE | 2023-01-15 10:41 | OT.IPNOTE ---
Attempted to see pt for OT treatment and pt falling asleep while talking to OT, to attempt to see pt later.
[2023-01-15 11:20] VITALS: BP 157/76; PULSE 85; RESP 18; TEMP 36.7; O2SAT 100
[2023-01-15] MEDS: polyethylene glycoL 3350 17 GM POWD.PACK PO (12:38)
--- NOTE | 2023-01-15 13:40 | PC.NURSE ---
Day shift: Pt having high amounts of anxiety about going home today. Concerned about the stairs she has to navigate when going home. Pt also upset because she thought she would be going to SNF for some rehab after staying in the hospital post-op. She states that she was told this prior to surgery. Given Ativan per SEP. Kim DAVILA is working on d/c plan. At this time the Pt has no discharge orders.
--- NOTE | 2023-01-15 13:51 | PT.IPTN ---
Current Diagnoses Opioid dependence, uncomplicated (01/13/23) Unilateral primary osteoarthritis, right knee (01/13/23) Presence of unspecified artificial knee joint (01/13/23) Surgery Performed Operation Date: 01/13/23 07:45 Actual Procedures p Total Knee Arthroplasty(Right) - Becki Garcia MD Physical Therapy Treatment Note M2 PT-IP Current Condition Start: 01/13/23 16:28 Freq: NEEDED Status: Active Protocol: Document 01/14/23 09:29 ES (Rec: 01/14/23 09:42 ES [id number]) Physical Therapy Current Condition Current Condition Evaluation Date 01/14/23 Treatment Diagnosis S/p R TKA Onset Date 01/13/23 M3 PT-IP Subjective Start: 01/13/23 16:28 Freq: NEEDED Status: Active Protocol: Document 01/15/23 12:24 KS (Rec: 01/15/23 14:22 KS [id number]) Subjective Physical Therapy Visit Type Type Treatment Note Visit Start Time 12:24 Visit Stop Time 14:00 Total Visit Minutes 42 Notes Split treatment 12:24-12:37 13:22-13:51 Number of WHEEL INSPECTOR Visits 3 Physical Therapy Visit Comments Patient Comments Pt needs encouragement to work w/ PT. Therapy Pain Assessment Pain When Pain Assessed During Weight Bearing Pain Present Pain Present Pain Reported Location right knee Scale Used not quantfied Description Throbbing Pain Management Techniques Apply Cold,Elevation,Re- positioning,Timing of Activity with Medications M4 PT-IP Mobility and Gait Start: 01/13/23 16:28 Freq: NEEDED Status: Active Protocol: Document 01/15/23 12:24 KS (Rec: 01/15/23 14:22 KS [id number]) PT-Bed Mobility Assessment Supine to Sit Supine to Sit Standby Assistance Sit to Supine Sit to Supine Standby Assistance Scooting Scooting to Edge of Bed Standby Assistance PT-Transfer Assessment Sit to and From Stand Sit to and from Stand Standby Assistance,1 Person Assistance,Use of Upper Extremities Equipment Transfer Assistive Device Gait Belt,Front Wheeled Walker Transfers Transfer Destination Chair Transfer Technique ambulated Transfer Ability Level of Assist Contact Guard Assistance,1 Person Assistance,Use of Upper Extremities Comments Mobility Comments Pt in bed upon arrival, reporting pain but agreeable to walk to chair w/ encouragement. SBA for sup<> sit and sit<>stand w/ FWW. Pt ambulated ~20 ft to chair CGA. Upon return, pt medicated and agreeable to stair training. Was able to complete 2 platform steps w/ FWW, CGA and cues for sequencing. Pt reports having cane, rail, FWW , 4WW, and w/c at home. Was not able to complete 16 steps due to pain but thinks she can make it home okay. Pt does not want FWW from hospital at this time. Left in chair w/ all needs in reach. Gait Assessment Gait Gait Assistance Required: Standby Assistance,Contact Guard Assist Distance (Feet) 20 Assistive Devices Assistive Device Gait Belt,Front Wheeled Walker Gait Deviations General Gait Pattern Antalgic,Flexed Trunk,Step-to Gait Factors Limiting Gait Function Factors Limiting Gait Function Decreased Activity Tolerance, Decreased Strength,Pain,Poor Balance,Poor Safety Awareness Comments Gait Comments Pt ambulated 20 ft w/ FWW SBA to CGA. No dizziness this PM. Stair Climbing Assessment Evaluation Level of Assist On Stairs Contact Guard Assistance,1 Person Assistance Devices Stair Climbing Assistive Devices Front Wheel Walker Technique/Endurance Stair Climbing Direction Ascend and Descend Stair Climbing Technique Step to Step Number of Steps Climbed 1 Stair Climbing Set # Repetitions (reps) 2 Comments Stair Climbing Comments Pt completed 2 steps w/ FWW although she has 16 steps descending to get to her apartment. She has a rail on one side. Pt states she may use FWW or cane and rail but undecided at this time. Her FWW may be missing one back pad but it is unclear and pt refuses to have FWW dispensed from hospital at this time. Pt refused further stair training w/ SPC and did not complete 16 steps. PT-Balance Assessment Sitting Balance and Reactions Static Sitting Balance Ability Normal Dynamic Sitting Balance Ability Good Standing Balance and Reactions Static Standing Balance Ability Good Dynamic Standing Balance Ability Fair Device Used FWW M5 PT-IP Objective Assessments Start: 01/13/23 16:28 Freq: NEEDED Status: Active Protocol: Document 01/14/23 09:29 ES (Rec: 01/14/23 09:42 ES [id number]) Orientation Orientation/Cognition Level of Alertness Lethargic Safety Awareness Decreased Safety Awareness Comments Drowsy, impulsive. Bed alarm activated at end of session. Gross Range of Motion Upper Extremity ROM Assessment Within Functional Limits Lower Extremity ROM Assessment Right Impaired Impairments Lacking ~10-15 degrees R knee extension. Strength Upper Extremity Strength Assessment Within Functional Limits Lower Extremity Strength Assessment Right Impaired Hip 4/5 Knee 3-/5 Ankle 4/5 M6 PT-IP Treatment Start: 01/13/23 16:28 Freq: NEEDED Status: Active Protocol: Document 01/15/23 12:24 KS (Rec: 01/15/23 14:22 KS [id number]) Physical Therapy Treatment Education Education Provided Precautions,Weight Bearing Status,Post-Op Packet,Safety M7 PT-IP Assessment and Plan Start: 01/13/23 16:28 Freq: NEEDED Status: Active Protocol: Document 01/15/23 12:24 KS (Rec: 01/15/23 14:22 KS [id number]) PT Summary Assessment and Plan Potential Rehabilitation Potential Good Summary Impairments Pain,ROM,Strength,Balance, Cognition,Transfers,Gait Progress Towards Goals Slow Progress due to Pain,Slow Progress due to Activity Tolerance Assessment Summary Pt limited by pain and high levels of anxiety. She did perform 2 platform steps w/ FWW and increased ambulation distance, however does have 16 steps to descend to enter home and has not been able to successfully complete those. Pt has multiple pieces of DME at home, however it remains unclear which she will actually be using. She does state she feels safe to go home despite not completing stair training and does not want FWW dispensed from the hospital at this time. Goals Bed Mobility Goal Independent Transfer Goal Independent,Front Wheeled Walker Gait Goal Independent,Front Wheel Walker Gait Distance 100 ft Other Goals Patient will be able to ascend /descend 16 stairs with single rail and LRAD. Patient will be modified indep with mobility using LRAD (4WW vs FWW). Patient will be indep with TKA HEP. Days to Meet Goals 3 Frequency of Treatment Frequency Of Treatment Twice a Day Treatment Plan Physical Therapy Treatment Plan Bed Mobility Training,Transfer Training,Gait Training, Therapeutic Exercise,Post Op Education,Discharge Planning, Hot or Cold Pack Other Recommendations and Next Treatment Pt has 16 steps with a rail on Focus right side. Steps are deep enough for use of FWW. Precautions Other Precautions Fall risk, impulsive Weight Bearing Status Weight Bearing Status Weight Bear as Tolerated Recommendations To Nursing Amount of Assist Needed 1 Person Assist Discharge Recommendations PT Discharge Recommendations Home vs SNF Other Discharge Recommendations TBD Transportation Needs at Discharge Private Vehicle,Wheelchair/ Cabulance
--- NOTE | 2023-01-15 15:00 | PM.DS.1 ---
History of Present Illness History of Present Illness Date Patient Seen: 01/15/23 Time Patient Seen: 08:03 Chief complaint: Knee pain Narrative: See progress note Discharge Providers Provider Date of admission: 01/13/23 10:29 Discharge Date: 01/15/23 Primary care physician: Eiml Wolfe DO Consults: 01/08/23 09:45 Consult to Surveillance Director Routine Comment: No help @ DC, wants to go to [facility] 01/13/23 10:52 Consult to Discharge Planning Routine Comment: Consult to Occupational Therapy Evaluate & Treat Comment: Physician Instructions: Evaluate and treat Consult to Physical Therapy Evaluate & Treat Comment: Physician Instructions: postop TKA protocol 01/13/23 11:00 Consult to Anesthesiology Routine Comment: Consulting Provider: Anesthesiologist Reason for consultation: Regional block for post operative pain control 01/14/23 12:22 Consult to Home Health Routine Comment: RTKA, arthritis Reason For Exam: Set up HH PT/OT/JAVA MANAGER/AIRCRAFT LOAD CONTROLLER for d/c to home Discharge provider: Mitch Timmons PA-C Summary Hospital Course Discharge Diagnosis: Right knee osteoarthritis Chronic pain Hospital Course: Patient admitted to the hospital for the above-mentioned diagnosis. Patient underwent right total knee arthroplasty on January 13, 2023. Patient back in her room recovering well as in stable condition. Difficulty with pain management as she is on chronic pain medications outside of the clinic as well as her living situation is slowed her progress stability go home in a safe environment. Patient has been mobilizing with physical therapy pain is controlled. Patient will be discharged home hello Right total knee arthroplasty Same procedure as scheduled: Yes Indications: The patient has had progressively worsening right knee pain with radiographic changes consistent with arthritis. Non-operative management has failed and the patient has requested total knee replacement. The risks, benefits and alternatives to surgery were discussed with the patient prior to proceeding. Risks discussed included, but were not limited to, failure to relieve pain, stiffness, infection, nerve damage, deep venous thrombosis, pulmonary embolism, stroke, coma, heart attack, permanent paralysis and , as well as the potential need for eventual revision of the prosthetic. Surgeon: Becki Garcia Hvac Estimator: Mitch Timmons Anesthesia Type: Spinal and Sedation Operative Notes Findings: Severe right knee lateral compartment arthritis, adequate stability, good tracking of the patella Closure Type: primary Specimen(s): none sent Prosthetic devices, grafts, tissues, transplants, or devices: [employer]CS 2 a size 5 femur, size 4 tibia, +10 poly, 35 x 7-1/2 mm patella Estimated Blood Loss (mL): 250 Blood products transfused: none Tourniquet time (min): 70 Patient admitted to the hospital for right total knee arthroplasty. Patient underwent right total knee arthroplasty January 13, 2023. Progress has been slowed due to living situation and chronic pain on chronic pain meds outside of the hospital. Pain is better controlled she is mobilizing she will be discharged home today in stable condition. Status at Discharge Cognitive/behavioral status at discharge: at baseline, oriented Functional status at discharge: uses cane/walker Overall status at discharge: patient is progressing back to baseline Exam Vital Signs (past 8 hours): - 01/15/23 08:13 01/15/23 11:20 Temperature 97.3 F L 98.1 F Pulse Rate 85 85 Respiratory Rate 18 18 Blood Pressure 155/76 H 157/76 H Pulse Oximetry 94 100 Oxygen Flow Rate 0 0 Oxygen Delivery Method Room Air Oxygen Flow Rate 0 Narrative Exam Narrative: See progress note Objective Labs 01/14/23 05:05 PFSH Medical History Back fracture Bipolar disorder Blindness of right eye (~2015) Depression History of COVID-19 Hx of ectopic PTSD (post-traumatic stress disorder) RLS (restless legs syndrome) Skin cancer Spinal stenosis Surgical History History of ankle surgery History of back surgery History of ear surgery History of hip surgery (~2019) History of nasal surgery Hx of eye surgery (~2015) Hx of hand surgery Hx of tubal ligation Social History household members: other Smoking Status: Former smoker alcohol intake: current Discharge Assessment & Plan Assessment and Plan Assessment: Patient progressing as expected status post right total knee arthroplasty Plan of Treatment: Multimodal pain management Weight-bearing as tolerated Discharge home today with home health services Discharge Plan Discharge Plan Patient Disposition: Home Health Service Discharge orders & Medications Prescriptions: New hydromorphone 2 mg Tablet 2 mg PO Q4HR PRN (Reason: pain) Qty: 40 0RF ibuprofen 400 mg Tablet 400 mg PO Q4H Qty: 60 0RF aspirin 81 mg Tablet,Delayed Release (Dr/Ec) 81 mg PO BID Qty: 60 0RF docusate sodium 100 mg Capsule 200 mg PO Q3H Qty: 20 0RF cyclobenzaprine 10 mg Tablet 10 mg PO BEDTIME Qty: 10 0RF Continued quetiapine 25 mg Tablet 25 mg PO BEDTIME hydrocodone-acetaminophen 10-325 mg Tablet 1 tab PO Q3H trazodone 100 mg Tablet 100 mg PO BEDTIME ropinirole 0.5 mg Tablet 0.5 - 1 mg PO BEDTIME Rx Instructions: administer 1-3 hours before bedtime divalproex 250 mg Tablet Extended Release 24 Hr 500 mg PO DAILY duloxetine 60 mg Capsule,Delayed Release(Dr/Ec) 60 mg PO BID gabapentin 100 mg Capsule 100 mg PO BEDTIME Patient Comments: Takes 100mg qam, 200mg bedtime Discontinued meloxicam 15 mg Tablet 15 mg PO DAILY Follow up/Referrals: Emil Wolfe DO [Primary Care Provider] - Becki Garcia MD [Physician] - As previously scheduled (Follow up with Dr Garcia on 01/22/2023 @ 2:00 pm at [facility] in [place].) Diet/Activity/Treatments Diet: Diet as Tolerated Activity: Walk frequently! Cold/Heat Therapy: Ice to knee as needed for pain. Skin/Wound/Dressing Care Report to your healthcare provider any signs of infection, such as:: chills, fever, night sweats, unusual drainage and unusual redness Dressing: May remove ERIKA wrap and shower on 01/16/2023. Leave Aquacel dressing in place until follow up in office. No bathing or otherwise soaking incision. Call the office if the dressing becomes saturated inside. Visit Report/Discharge Packet Instructions: DI for Knee Replacement, DI for Prescription Opioid Use Stand Alone Forms: Patient Portal/API, Stroke Signs & Symptoms, Surgery Discharge Discharge Data Primary Care Provider: Emil Wolfe Attending Provider: Becki Garcia Admit Date/Time: 01/13/23 10:29
--- NOTE | 2023-01-15 15:00 | CM.DPNOTE ---
DC Note Patient discharged home today w/willi JEAN Patient having a difficult day and appears to be suffering from anxiety. Patient admits she is anxious when people ask about the discharge plan and she becomes tearful easily Therapies had been recommending SNF, however, patient moving well today and conversations w/ TANJA Jackman today confirm this DOOR CAPTAIN's suspicion that patient's anxiety is a major limiting factor for her Patient remains agreeable to willi JEAN and has arranged for her roommate to give her a ride home Plan: Discharge home w/roommate and willi JEAN PT/OT/SLIDE ATTENDANT/DOOR CAPTAIN, close outpatient follow up recommending [facility]
--- NOTE | 2023-01-15 16:52 | PC.NURSE ---
Day shift: Paperwork signed and all questions answered. Aqucel remains CDI. ACR wrap removed per Pt to take a shower and she did not want ERIKA put back on. Pain well controlled per SEP. Pt has all personal belongings. scripts sent electronic to Pt's pharmacy. LEt unit via WC at approx 1630. Taken to car by REYNALDO Tabor. Pt's friend picked her up and is driving her home.
== END 2023-01-15 16:54 | disposition home health service (06) ==
LOC: OR 01-14 10:40 → AC 01-14 10:40
PROVIDERS: Admitting Provider Orthopaedic Surgery; PCP Emergency Medicine; Referring Provider Orthopaedic Surgery; Visit Provider Orthopaedic Surgery
PROC: 0SRC0JZ Replacement of Right Knee Joint with Synthetic Substitute, Open Approach (ICD-10-PCS; CPT 27447; principal; 2023-01-13 07:45)
DX: M17.11 Unilateral primary osteoarthritis, right knee (principal); F11.20 Opioid dependence, uncomplicated; Z96.659 Presence of unspecified artificial knee joint; F17.200 Nicotine dependence, unspecified, uncomplicated
CPT/HCPCS: 27447; 36415; 73560; 82962; 85014; 85018; 97116; 97162; 97165; 97530; 97535; C1776; G0378; C9290; J0690; J1100; J2405; J2704

== ENCOUNTER → 2023-11-18 16:31 | Outpatient (CLI) | payer MEDICARE, OTHER, SELFPAY ==
[2023-01-13 12:37] VITALS: BMI 28.8
[2023-11-18 17:51] LABS: Add Manual Diff / Slide Review NO; Basophils Absolute Auto 0 /uL (0-100); Basophils Percent Auto 0.3 % (0-2); Eosinophils Absolute Auto 100 /uL (0-450); Eosinophils Percent Auto 2.1 % (2-4); Hematocrit 41.5 % (36-46); Hemoglobin 14.1 g/dL (12.0-16.0); Lymphocytes Absolute Auto 2000 /uL (1100-4500); Mean Corpuscular Hemoglobin 32.5 PG (26-34); Mean Corpuscular Volume 95.7 fL (80-100); Monocytes Absolute Auto 700 /uL (0-900); Monocytes Percent Auto 9.7 % (3-14); Neutrophils Absolute Auto 4000 /uL (1500-7000); Neutrophils Percent Auto 58.9 % (50-75); Platelet Count 227 X10^3/uL (150-400); Red Blood Cell Count 4.33 X10^6/uL (4.0-5.2); White Blood Cell Count 6.8 X10^3/uL (4.5-11.0)
[2023-11-18 17:53] LABS: Appearance Urine UA CLEAR; Bilirubin Urine UA NEGATIVE (NEGATIVE); Color Urine UA YELLOW; Glucose Urine UA NEGATIVE (Negative); Ketones Urine UA TRACE (NEGATIVE); Leukocyte Esterase Urine UA NEGATIVE (NEGATIVE); Nitrite Urine UA NEGATIVE (Negative); Occult Blood Urine UA NEGATIVE (Negative); Protein Urine UA TRACE (Negative)
[2023-11-18 17:55] LABS: pH Urine UA 7.5 (4.5-8.0)
[2023-11-18 17:58] LABS: Hemoglobin A1C% w Est Avg Glu 5.4 % (4.0-6.0)
[2023-11-18 18:00] LABS: Bacteria Urine Occasional (0-1); RBC Urine None Seen (0-5/HPF); Squamous Epithelial Cell Urine 5-10 /HPF (0-5/HPF); Urine Volume 10mL (spun); WBC Urine 0-1/HPF (0-5/HPF)
[2023-11-18 18:01] LABS: Culture Indicated Urine Specimen Cultured
[2023-11-18 18:10] LABS: BUN Creatinine Ratio 16.1 (6-22); Blood Urea Nitrogen 14 mg/dL (7-17); Calcium 10.2 mg/dL (8.4-10.2); Carbon Dioxide 26 mmol/L (22-32); Chloride 107 mmol/L (98-107); Estimated Glomerular Filt Rate > 60 mL/min (>60); Glucose 115 mg/dL (80-110); HEMOLYSIS < 15 (0-50); Sodium 139 mmol/L (137-145)
== END ==
PROVIDERS: PCP Emergency Medicine; Referring Provider Orthopaedic Surgery; Visit Provider Orthopaedic Surgery
DX: Z01.818 Encounter for other preprocedural examination (principal); R73.9 Hyperglycemia, unspecified; Z01.812 Encounter for preprocedural laboratory examination; N39.0 Urinary tract infection, site not specified
CPT/HCPCS: 36415; 80048; 81001; 83036; 85025; 87086; 93005; 93010

== ENCOUNTER → 2023-11-23 15:38 | Outpatient (CLI) | payer MEDICARE, OTHER, SELFPAY ==
[2023-01-13 12:37] VITALS: BMI 28.8
--- NOTE | 2023-11-23 15:40 | DI.MRI.S_ITS ---
PROCEDURE: MR THORACIC SPINE WO CON INDICATIONS: Radiculopathy, thoracic region TECHNIQUE: Noncontrast sagittal T1 spine echo and T2 fast spin echo, sagittal STIR, and T2 fast spin echo through the thoracic spine. COMPARISON: [facility], CR, XR LUMBAR SPINE WITH FLEXION EXTENSION 5 VIEWS, 04/24/2022, 16:18. FINDINGS: Image quality: Excellent. Alignment and Curvature: There is normal bony alignment. Bone Marrow: Marrow is of normal overall signal. No acute vertebral body compression fractures. A compression deformity is redemonstrated at the L1 vertebral body and appears unchanged from the plain film dated April 24, 2022. Spinal Cord: Visualized spinal cord is normal in size and signal. Paraspinous Soft Tissues: No paravertebral masses. Miscellaneous: There is diffuse, mild to moderate intervertebral disc space narrowing throughout the thoracic spine. There is a questionable left lateral disc bulge or protrusion at C6-7 which is incompletely characterized on this limited view of the cervical spine (series 6/image 4). The central canal is widely patent throughout the thoracic spine. No foraminal narrowing visualized. IMPRESSION: 1. Questionable C6-7 disc bulge or disc protrusion which is incompletely characterized on this study. If further characterization is warranted, MRI of the cervical spine is recommended. 2. No canal stenosis or foraminal stenosis of the thoracic spine. 3. Mild degenerative change of the thoracic spine without compression deformity or other bony abnormality. 4. Stable L1 compression deformity. Dictated by: Nettie Yun M.D. on 11/23/2023 at 17:20 Approved by: Nettie Yun M.D. on 11/23/2023 at 17:24
== END ==
PROVIDERS: PCP Emergency Medicine; Referring Provider Student in an Organized Health Care Education/Training Program; Visit Provider Student in an Organized Health Care Education/Training Program
DX: M47.24 Other spondylosis with radiculopathy, thoracic region (principal); M43.8X6 Other specified deforming dorsopathies, lumbar region
CPT/HCPCS: 72146